=== PATIENT | female | born 1985 | race Caucasian/White ===

== ENCOUNTER 2017-07-21 19:50 | Outpatient (CLI) | payer OTHER ==
[~2017-07-21 19:50] MED LIST: MACROBID 100 M100 MG PO; PEPCID40 MG PO; PHENERGAN25 MG PO; PRENATAL CAPSU1 EACH; PRENATAL TABLE1 EAC1 PO; PROGESTERO50 MG/1 M1; ZOFRAN2 MG/M1 IM
== END 2017-07-22 21:02 | disposition home or self-care (01) ==
LOC: OBS/DEL 19:50
DX: O60.03 Preterm labor without delivery, third trimester (principal); Z34.83 Encounter for supervision of other normal pregnancy, third trimester

== ENCOUNTER 2017-07-28 15:47 | Inpatient (IN) | payer OTHER ==
[~2017-07-28] VITALS: Ht 160 cm; Wt 104.8 kg
[2017-07-28] MEDS ORDERED: ALDOMET500 MG PO (17:46)
== END 2017-07-31 12:13 | DRG 774 ==
LOC: LDR 15:47 → OB/GYN 07-29 18:11
PROC: 10E0XZZ Delivery of Products of Conception, External Approach (ICD-10-PCS; principal; 2017-07-29)
PROC: 10907ZC Drainage of Amniotic Fluid, Therapeutic from Products of Conception, Via Natural or Artificial Opening (ICD-10-PCS; 2017-07-29)
PROC: 3E033VJ Introduction of Other Hormone into Peripheral Vein, Percutaneous Approach (ICD-10-PCS; 2017-07-29)
PROC: 4A033R1 Measurement of Arterial Saturation, Peripheral, Percutaneous Approach (ICD-10-PCS; 2017-07-29)
PROC: 4A1HXCZ Monitoring of Products of Conception, Cardiac Rate, External Approach (ICD-10-PCS; 2017-07-29)
DX: O69.81X0 Labor and delivery complicated by cord around neck, without compression, not applicable or unspecified (principal); O10.42 Pre-existing secondary hypertension complicating childbirth; O98.82 Other maternal infectious and parasitic diseases complicating childbirth; B95.1 Streptococcus, group B, as the cause of diseases classified elsewhere; Z3A.37 37 weeks gestation of pregnancy; Z37.0 Single live birth

== ENCOUNTER 2020-02-08 10:18 | Day surgery (SDC) | payer OTHER ==
[~2020-02-08 10:18] MED LIST changes: +ALDOMET500 MG PO; +NASAL MIST126 ML
== END 2020-02-08 23:10 | disposition home or self-care (01) ==
LOC: CIR.AMB 10:18
PROVIDERS: ATTEND Obstetrics & Gynecology
DX: O02.1 Missed abortion (principal); Z20.828 Contact with and (suspected) exposure to other viral communicable diseases

== ENCOUNTER 2021-05-13 03:50 | Emergency (ER) | payer OTHER ==
[~2021-05-13] VITALS: Ht 160 cm; Wt 99.8 kg
== END 2021-05-13 12:02 | disposition home or self-care (01) ==
LOC: ER 03:50
DX: O20.0 Threatened abortion (principal); Z20.822 Contact with and (suspected) exposure to COVID-19

== ENCOUNTER 2022-09-24 18:39 | Emergency (ER) | payer OTHER ==
[~2022-09-24] VITALS: Ht 160 cm; Wt 97.1 kg
[2022-09-24] MEDS ORDERED: ENDOMETRIN100 MG VAG (18:50)
[2022-09-24] MEDS ORDERED: PRENATAL + DHA1 EAC1 PO (18:50)
[2022-09-24] MEDS ORDERED: LABETALOL HCL200 MG PO (23:05)
[2022-09-24] MEDS ORDERED: MACRODANTIN100 M1 PO (23:11)
== END 2022-09-25 01:06 | disposition home or self-care (01) ==
LOC: ER 18:39
DX: O21.0 Mild hyperemesis gravidarum (principal); Z3A.11 11 weeks gestation of pregnancy; O13.1 Gestational [pregnancy-induced] hypertension without significant proteinuria, first trimester

== ENCOUNTER 2022-10-04 14:45 | Emergency (ER) | payer OTHER ==
[~2022-10-04] VITALS: Ht 160 cm; Wt 90.7 kg
[~2022-10-04 14:45] MED LIST changes: +ENDOMETRIN100 MG VAG; +LABETALOL HCL200 MG PO; +MACRODANTIN100 M1 PO; +PRENATAL + DHA1 EAC1 PO
== END 2022-10-05 00:12 | disposition home or self-care (01) ==
LOC: ER 14:45
DX: E87.6 Hypokalemia (principal); R11.11 Vomiting without nausea